=== PATIENT | male | born 1960 | race Asian ===

== ENCOUNTER 2021-04-21 03:36 | Inpatient (IN) ==
[2021-04-21] MEDS ORDERED: ONDANSETRON 4 MG/2 ML VIAL IV STA (04:20)
[2021-04-21] MEDS ORDERED: PANTOPRAZOLE 40 MG VIAL IV STA (04:20)
[2021-04-21] MEDS ORDERED: SODIUM CHLORIDE 0.9% 1,000 ML IV STA ×2 (04:20→05:32)
[2021-04-21] MEDS ORDERED: MORPHINE 2 MG/1 ML SYRINGE IV STA ×2 (04:20→07:50)
[2021-04-21 05:00] LABS: Basophils # 0.1 10*3/uL (0.0-0.2); Basophils % 0.4 % (0.0-0.8); Eosinophils # 0.1 10*3/uL (0.0-0.87); Eosinophils % 0.6 % (0.00-10.9); Hematocrit 45.4 VOL% (42.0-52.0); Hemoglobin 15.4 GM/DL (14.0-18.0); Immature Granulocytes % 0.3 %; Immature Granulocytes Absolute 0.04 #; Lymphocytes # 1.4 10*3/uL (1.4-4.0); Lymphocytes % 11.2 % (21.2-54.2); Mean Corpuscular HGB Conc 33.9 GM/DL (32-36); Mean Corpuscular Volume 93.4 FL (87-102); Mean Platelet Volume 10.1 FL (9.6-12.0); Monocytes % 4.6 % (1.7-12.7); Neutrophils % 82.9 % (38.7-73.9); Platelet Count 262 T/CUMM (130-400); Red Blood Count 4.86 MC/CUMM (3.8-5.5); Red Cell Distribution Width 11.5 % (9.3-17.3); White Blood Count 12.9 T/CUMM (4-12)
[2021-04-21 05:15] LABS: Bilirubin,Total 0.6 MG/DL (0.20-1.00); Calcium 8.9 MG/DL (8.5-10.1); Osmolality,Calculated 269.5 MOS/KG (273-304); Potassium 3.3 MMOL/L (3.5-5.1); Total Protein 8.8 G/DL (6.4-8.2)
[2021-04-21] MEDS ORDERED: PIPERACILLIN/TAZOBACTAM 3,375 MG in SODIUM CHLORIDE 0.9% 100 ML IV STA (07:49)
[2021-04-21] MEDS ORDERED: MORPHINE 2 MG/1 ML SYRINGE IV PRN (08:02)
[2021-04-21] MEDS ORDERED: ONDANSETRON 4 MG/2 ML VIAL IV PRN (08:02)
[2021-04-21] MEDS ORDERED: INDOCYANINE GREEN 25 MG VIAL IV ONE ×2 (08:26→09:30)
[2021-04-21] MEDS ORDERED: TISSUE ADHESIVE 1 EACH APPLICATOR TOP ONE (09:08)
[2021-04-21] MEDS ORDERED: LIDOCAINE 1%/EPI INJ 20 ML VIAL ONE (09:08)
[2021-04-21] MEDS ORDERED: BUPIVACAINE MPF 0.25% 30 ML VIAL ONE (09:08)
[2021-04-21] MEDS: LACTATED RINGERS 1,000 ML IV SCH ×2 (09:10→15:58)
[2021-04-21] MEDS ORDERED: LIDOCAINE 2% 5 ML VIAL ONE (09:13)
[2021-04-21] MEDS ORDERED: ROCURONIUM 50 MG/5 ML VIAL IV ONE (09:13)
[2021-04-21] MEDS ORDERED: propofoL 200 MG/20 ML VIAL IV ONE (09:13)
[2021-04-21] MEDS ORDERED: MIDAZOLAM 2 MG/2 ML VIAL ONE (09:14)
[2021-04-21] MEDS ORDERED: fentaNYL 100 MCG/2 ML VIAL ONE (09:14)
[2021-04-21] MEDS: PIPERACILLIN/TAZOBACTAM 3,375 MG in SODIUM CHLORIDE 0.9% 100 ML IV SCH ×2 (09:44→15:58)
[2021-04-21] MEDS ORDERED: hydrALAZINE 20 MG/1 ML VIAL IV PRN (11:04)
[2021-04-21] MEDS ORDERED: LABETALOL 20 MG/4 ML SYRINGE IV ONE ×4 (13:14→13:33)
[2021-04-21] MEDS ORDERED: EPINEPHrine 1 MG/ML VIAL ONE (14:11)
[2021-04-21] MEDS ORDERED: ACETAMINOPHEN INJ 1,000 MG/100 ML VIAL IV ONE (14:12)
[2021-04-21] MEDS ORDERED: PHENYLEPHRINE 10 MG/1 ML VIAL IV ONE (14:12)
[2021-04-21] MEDS ORDERED: SEVOFLURANE 1 UNIT/15 MINUTE INH ONE (14:41)
[2021-04-21] MEDS ORDERED: SUGAMMADEX 200 MG/2 ML VIAL IV ONE (14:41)
[2021-04-21] MEDS ORDERED: SODIUM CHLORIDE 0.9% 250 ML IV ONE (14:41)
[2021-04-22] MEDS: LACTATED RINGERS 1,000 ML IV SCH ×2 (00:01→08:09)
[2021-04-22] MEDS: PIPERACILLIN/TAZOBACTAM 3,375 MG in SODIUM CHLORIDE 0.9% 100 ML IV SCH ×2 (00:02→08:09)
[2021-04-22 08:19] VITALS: BP 136/69
== END 2021-04-22 10:57 | disposition home or self-care (01) | DRG 419 ==
LOC: N.ED 03:36 → N.EDINP 08:02 → N.3E 08:55
PROVIDERS: ADMIT Surgery; ATTEND Surgery
PROC: LAPCHOL (2021-04-21 13:43)